=== PATIENT | male | born 1940 | race Caucasian/White ===

== ENCOUNTER 2020-08-08 09:44 | Day surgery (SDC) | payer MEDICARE ==
[~2020-08-08] VITALS: Ht 170.2 cm; Wt 59.2 kg
[~2020-08-08 09:44] MED LIST: ASPI81EC PO; CARV6.25 PO; GLIM2 PO; HYDACE5 PO; LISI5 PO; METF500 PO; OMEG1CAP30 PO; ROSU10TA PO; WARF5 PO
--- NOTE | 2020-08-08 10:59 | NUR ---
08/08/20 1059 Loretta Nath 1 TRY RIGHT HAND VALVE 2 TRY RIGHT WRIST MOVED
== END 2020-08-08 12:22 | disposition home or self-care (01) ==
LOC: ORSCSDS 09:44
PROVIDERS: Internal Medicine Gastroenterology
PROC: 0DBL8ZX Excision of Transverse Colon, Via Natural or Artificial Opening Endoscopic, Diagnostic (ICD-10-PCS; principal; 2020-08-08 11:45)
PROC: 0DBK8ZX Excision of Ascending Colon, Via Natural or Artificial Opening Endoscopic, Diagnostic (ICD-10-PCS; principal; 2020-08-08 11:45)
DX: Z12.11 Encounter for screening for malignant neoplasm of colon (principal); D12.2 Benign neoplasm of ascending colon; D12.3 Benign neoplasm of transverse colon; K57.30 Diverticulosis of large intestine without perforation or abscess without bleeding; K64.1 Second degree hemorrhoids; E11.9 Type 2 diabetes mellitus without complications; I10 Essential (primary) hypertension; Z79.84 Long term (current) use of oral hypoglycemic drugs; Z79.899 Other long term (current) drug therapy; Z79.01 Long term (current) use of anticoagulants
CPT/HCPCS: 82947; 88305; J2704; J7120

== ENCOUNTER 2024-06-17 09:47 | Inpatient (IN) | payer MEDICARE ==
[~2024-06-17] VITALS: Ht 167.6 cm; Wt 56.9 kg
[~2024-06-17 09:47] MED LIST changes: +DOCUZEN 8.6-501 EACH PO; +ELIQUIS2.5 MG PO; +FARXIGA10 MG PO; +METO25ER PO; +Percocet 5-3251 EACH PO
[2024-06-17 13:48] LABS: BASOPHILS ABSOLUTE AUTO 0.04 K/mm3 (0.00-0.23); BASOPHILS PERCENT AUTO 1 % (0-2); EOSINOPHILS ABSOLUTE AUTO 0.09 K/mm3 (0.00-0.68); EOSINOPHILS PERCENT AUTO 1 % (0-6); Hematocrit 36.7 % (37.0-53.0); Hemoglobin 12.3 g/dL (13.5-17.5); IMMATURE GRAN ABSOLUTE AUTO 0.04 K/mm3 (0.00-0.10); IMMATURE GRAN PERCENT AUTO 1 % (0-1); LYMPHOCYTES ABSOLUTE AUTO 1.91 K/mm3 (0.84-5.20); LYMPHOCYTES PERCENT AUTO 23 % (21-46); MONOCYTES ABSOLUTE AUTO 0.56 K/mm3 (0.16-1.47); MONOCYTES PERCENT AUTO 7 % (4-13); Mean Corpuscular HGB 29.6 pg (26.0-34.0); Mean Corpuscular HGB Conc 33.5 g/dL (31.5-36.5); Mean Corpuscular Volume 88 fL (80-100); Mean Platelet Volume 9.6 fL (9.1-12.4); NEUTROPHILS ABSOLUTE AUTO 5.83 K/mm3 (1.96-9.15); NEUTROPHILS PERCENT AUTO 69 % (41-73); Platelet Count 197 K/mm3 (150-400); RDW Coefficient Variation 13.2 % (11.7-14.2); RDW Standard Deviation 43.3 fL (35.1-46.3); Red Blood Cell Count 4.16 M/mm3 (4.30-5.90); White Blood Cell Count 8.47 K/mm3 (4.00-11.30)
[2024-06-17 14:05] LABS: Calcium, Blood 8.8 mg/dL (8.5-10.1); Creatinine, Blood 1.59 mg/dL (0.60-1.20); Potassium, Blood 3.9 mmol/L (3.5-5.5)
[2024-06-17] MEDS ORDERED: FLU VACC TS2024-25(6MOS UP)/PF 45 MCG/0.5 ML SYRINGE IM SCH (14:45)
[2024-06-17] MEDS ORDERED: Ondansetron HCl 2 MG / ML 2ML Vial IV PRN (14:45)
[2024-06-17] MEDS ORDERED: NS 1,000 ML IV SCH (14:45)
[2024-06-17 14:56] LABS: International Normalized Ratio 1.04; Prothrombin Time Results 11.1 Sec (9.7-11.5)
[2024-06-17 16:08] VITALS: BP 122/88
[2024-06-17] MEDS ORDERED: Crestor40 MG PO (16:10)
[2024-06-17] MEDS ORDERED: INSULANI SC (16:12)
[2024-06-17] MEDS ORDERED: INSULIN AS100 UNIT/8 SC (16:13)
[2024-06-17] MEDS ORDERED: XULTOPHY SC (16:14)
[2024-06-17] MEDS ORDERED: Heparin Sodium,Porcine/0.5 NS 500 ML IV SCH (16:20)
--- NOTE | 2024-06-17 16:45 | NUR ---
ARRIVAL TO UNIT AFTER RECEIVING REPORT FROM ED RN, PATIENT TRANSFERRED TO UNIT AT APPROX 1600. PATIENT ALERT AND ORIENTED X4. COMMUNICATES NEEDS EFFECTIVELY. FOLLOWS COMMANDS APPROPRIATELY. TRANSFERRED TO BED VIA SLIDER SHEET. L HIP FX - PPP, IS NOT EXTERNALLY ROTATED. PAIN TOLERABLE AT THIS TIME. VSS. ON ROOM AIR, SATs >90%. TELEMETRY SHOWING SINUS WITH PVCs 70s PER RAJIV MUSIC INTERN. DENIES CHEST PAIN, PRESSURE. HEPARIN GTT STARTED PER EMAR. URINAL WITHIN REACH. SCDs PLACED. SKIN INTACT - NO WOUNDS NOTED. CALL LIGHT IN REACH.
[2024-06-17] MEDS ORDERED: FentaNYL Citrate 50 MCG/ML 2 ML Injection IV PRN (17:05)
[2024-06-17] MEDS ORDERED: Insulin Human Lispro 100 Units/ML 3ML Syringe SC SCH (18:00)
--- NOTE | 2024-06-17 18:27 | NUR ---
SHIFT SUMMARY NO ACUTE CHANGES SINCE ARRIVAL TO UNIT. PATIENT REMAINS ALERT AND ORIENTED X4. COMMUNICATING NEEDS EFFECTIVELY. MEDICATED PER EMAR 4/10 L HIP PAIN WITH RELIEF. IVF INFUSING PER EMAR. HEPARIN GTT INFUSING PER EMAR. CALL LIGHT IN REACH. WILL CONTINUE TO MONITOR AND REPORT TO ONCOMING RN.
[2024-06-17 19:29] VITALS: BP 130/70
[2024-06-17] MEDS ORDERED: Dose Adjust by Pharmacy XX STA (23:51)
[2024-06-18] VITALS (15 sets, daily range): BP systolic 101–133; BP diastolic 61–86
[2024-06-18] MEDS ORDERED: Vancomycin HCL 1,000 MG in NS 250 ML IV SCH (00:01)
[2024-06-18] MEDS ORDERED: CeFAZolin Sodium 2,000 MG in NS 100 ML IV SCH ×2 (00:01→22:00)
[2024-06-18] MEDS ORDERED: Tranexamic Acid 1,000 MG in NS 100 ML IV SCH ×2 (00:01→13:50)
--- NOTE | 2024-06-18 04:13 | NUR ---
SHIFT SUMMARY NO ACUTE CHANGES OVERNIGHT. NPO AT MIDNIGHT; PREOP STATUS. PAIN MANAGED USING NPIS AND PER EMAR. A&OX4. PLEASANT & COOPERATIVE WITH CARES. ABLE TO VOICE NEEDS. TELEMETRY OVERNIGHT, ABNORMAL FINDINGS NOTED IN NURSING NOTE. HEPARIN GTT OVERNIGHT PER EMAR, TITRATION MANAGED BY PHARMACY. PT VOICED UNDERSTANDING OF PLAN OF CARES, DENIES QUESTIONS/CONCERNS AT THIS TIME.
--- NOTE | 2024-06-18 04:18 | NUR ---
TELEMETRY NOTES, NOCSHIFT 1944 PAPO FROM TELE INFORMED THIS RN OF 12 SECONDS OF BIGEMINY. PT ASYMPTOMATIC. RETURNED TO SR AT 72 BPM WITH BUNDLE BRANCH. PHYSICIAN INTERNIST MADE AWARE. 413 PAPO FROM TELE INFORMED THIS RN OF 15 BEATS OF SVT, HR OF 153BPM. RETURNED TO SR AT 60BPM WITH BUNDLE BRANCH. PT ASSESSED BY THIS RN; ASLEEP, RESTING QUIETLY WITH EYES CLOSED, BREATHING EQUAL & UNLABORED. PHYSICIAN INTERNIST MADE AWARE.
[2024-06-18 06:52] LABS: BASOPHILS ABSOLUTE AUTO 0.07 K/mm3 (0.00-0.23); BASOPHILS PERCENT AUTO 1 % (0-2); EOSINOPHILS ABSOLUTE AUTO 0.41 K/mm3 (0.00-0.68); EOSINOPHILS PERCENT AUTO 5 % (0-6); Hematocrit 33.8 % (37.0-53.0); IMMATURE GRAN ABSOLUTE AUTO 0.02 K/mm3 (0.00-0.10); IMMATURE GRAN PERCENT AUTO 0 % (0-1); LYMPHOCYTES ABSOLUTE AUTO 2.36 K/mm3 (0.84-5.20); LYMPHOCYTES PERCENT AUTO 29 % (21-46); MONOCYTES ABSOLUTE AUTO 0.64 K/mm3 (0.16-1.47); MONOCYTES PERCENT AUTO 8 % (4-13); Mean Corpuscular HGB 29.1 pg (26.0-34.0); Mean Corpuscular HGB Conc 32.5 g/dL (31.5-36.5); Mean Corpuscular Volume 89 fL (80-100); Mean Platelet Volume 9.4 fL (9.1-12.4); NEUTROPHILS ABSOLUTE AUTO 4.68 K/mm3 (1.96-9.15); NEUTROPHILS PERCENT AUTO 57 % (41-73); Platelet Count 176 K/mm3 (150-400); RDW Coefficient Variation 13.3 % (11.7-14.2); RDW Standard Deviation 44.1 fL (35.1-46.3); Red Blood Cell Count 3.78 M/mm3 (4.30-5.90); White Blood Cell Count 8.18 K/mm3 (4.00-11.30)
[2024-06-18 07:05] LABS: Bun/Creatinine Ratio 18.2 (12.0-20.0); Calcium, Blood 8.2 mg/dL (8.5-10.1); Creatinine, Blood 1.48 mg/dL (0.60-1.20); Potassium, Blood 4.1 mmol/L (3.5-5.5)
[2024-06-18] MEDS ORDERED: FentaNYL Citrate 50 MCG/ML 2 ML Injection IV PRN (09:25)
--- NOTE | 2024-06-18 09:57 | NUR ---
MORNING NOTE ASSUMED CARE AT 0715. PATIENT ALERT AND ORIENTED X4. IS A BIT KOI - COMMUNICATES NEEDS EFFECTIVELY. VSS. L HIP FX - PPP, MILD SWELLING. MD BAILEY ROUNDING THIS MORNING - DISCUSSED WITH PATIENT AND HIS DAUGHTER NEED FOR OUTPATIENT FABRIC DESIGNER FOLLOW UP DUE TO TELEMETRY EVENTS LAST NIGHT AND CARDIAC HX - 14 BEAT RUN OF VTACH. PER RAJIV TURBOGENERATOR OPERATOR - TELEMETRY SHOWING SINUS W/ PVCs AND WANDERING ATRIAL. BP STABLE. PATIENT ASYMPTOMATIC. CONCERN FOR CARDIAC EVENT LEADING TO FALL. CODE STATUS DISCUSSED - WISH TO REMAIN FULL CODE POST PROCEDURE AT THIS TIME. LLE PAIN NOT MANAGED WITH CURRENT FENTANYL ORDER - MD BAILEY CHANGED ORDER TO 25MCG - 50MCG Q4H. ADDITIONAL DOSE ADMINISTERED PER EMAR WITH REPORTED RELIEF. HEPARIN GTT STOPPED PER EMAR PER MD MONTOYA. USING URINAL AT BEDSIDE. CALL LIGHT IN REACH. DAUGHTER AT BEDSIDE. AWAITING SURGICAL REPAIR OF L HIP. NPO SINCE MIDNIGHT.
[2024-06-18 12:06] LABS: BASOPHILS ABSOLUTE AUTO 0.05 K/mm3 (0.00-0.23); BASOPHILS PERCENT AUTO 1 % (0-2); EOSINOPHILS ABSOLUTE AUTO 0.27 K/mm3 (0.00-0.68); EOSINOPHILS PERCENT AUTO 4 % (0-6); Hematocrit 35.6 % (37.0-53.0); Hemoglobin 11.8 g/dL (13.5-17.5); IMMATURE GRAN ABSOLUTE AUTO 0.03 K/mm3 (0.00-0.10); IMMATURE GRAN PERCENT AUTO 0 % (0-1); LYMPHOCYTES ABSOLUTE AUTO 1.51 K/mm3 (0.84-5.20); LYMPHOCYTES PERCENT AUTO 19 % (21-46); MONOCYTES ABSOLUTE AUTO 0.45 K/mm3 (0.16-1.47); MONOCYTES PERCENT AUTO 6 % (4-13); Mean Corpuscular HGB 29.5 pg (26.0-34.0); Mean Corpuscular HGB Conc 33.1 g/dL (31.5-36.5); Mean Corpuscular Volume 89 fL (80-100); NEUTROPHILS ABSOLUTE AUTO 5.51 K/mm3 (1.96-9.15); NEUTROPHILS PERCENT AUTO 70 % (41-73); Platelet Count 212 K/mm3 (150-400); RDW Coefficient Variation 13.2 % (11.7-14.2); RDW Standard Deviation 43.4 fL (35.1-46.3); White Blood Cell Count 7.82 K/mm3 (4.00-11.30)
--- NOTE | 2024-06-18 13:39 | NUR ---
PATIENT TRANSFERRED OFF UNIT FOR PROCEDURE
[2024-06-18] MEDS ORDERED: FentaNYL Citrate 50 MCG/ML 2 ML Injection ONE (13:40)
[2024-06-18] MEDS ORDERED: propofoL 0 ML IV ONE (13:40)
[2024-06-18] MEDS ORDERED: CeFAZolin Sodium 2,000 MG VIAL ONE (13:44)
[2024-06-18] MEDS ORDERED: Lactated Ringer's 1,000 ML IV ONE (13:51)
[2024-06-18] MEDS ORDERED: Tranexamic Acid 100 ML IV SCH (14:00)
[2024-06-18] MEDS ORDERED: Etomidate 2MG / ML 10ML Vial ONE (14:28)
[2024-06-18] MEDS ORDERED: Midazolam HCl 1MG / ML 2ML Vial ONE (14:29)
[2024-06-18] MEDS ORDERED: ePHEDrine Sulfate 50 MG/ML 1ML Injection ONE (14:39)
[2024-06-18] MEDS ORDERED: Lidocaine HCl 1% 30 ML SDV ONE (14:50)
[2024-06-18] MEDS ORDERED: Dexamethasone Sod Phos 10 MG/ML 1ML VIAL ONE (15:32)
[2024-06-18] MEDS ORDERED: Ondansetron HCl 2 MG / ML 2ML Vial ONE (15:32)
[2024-06-18] MEDS ORDERED: Phenylephrine HCl 100 MCG/ML-NS 10MLSYR (1MG/10ML) ONE (15:32)
[2024-06-18] MEDS ORDERED: Insulin Human Lispro 100 Units/ML 3ML Syringe SC SCH (16:30)
--- NOTE | 2024-06-18 17:58 | NUR ---
SHIFT SUMMARY PATIENT RETURNED TO UNIT FROM PACU AT APPROX 1600. PATIENT ALERT AND ORIENTED X4. COMMUNICATING NEEDS EFFECTIVELY. S/P L HIP PINNING - PPP, CAP REFILL <2 SECONDS. DENIES PAIN. AQUACEL DRESSING C/D/I. VSS. CURRENTLY ON 2L VIA NC POST PROCEDURE - SATs SUSTAINING 87-88% ON ROOM AIR. TELEMETRY SHOWING SINUS PER RAJIV FISHER QUAHOG. HEPARIN GTT RESTARTED PER EMAR AND MD ORDER. PHARMACY NOTIFIED. TOLERATING PO INTAKE - DENIES N/V. CALL LIGHT IN REACH. FAMILY AT BEDSIDE. WILL CONTINUE TO MONITOR AND REPORT TO ONCOMING RN.
[2024-06-18 18:30] LABS: MYOGLOBIN SERUM 132 ng/mL (<=72)
[2024-06-18] MEDS ORDERED: Lactobacil 2-S.Thermo-Bifido 1 1 Cap PO SCH (21:00)
[2024-06-18] MEDS ORDERED: Docusate Sodium 100 MG Cap PO SCH (21:00)
[2024-06-19] MEDS ORDERED: Heparin Sodium 5000 Units/ML 1ML MDV IV ONE (00:05)
[2024-06-19] MEDS ORDERED: Dose Adjust by Pharmacy XX STA (00:05)
[2024-06-19 04:09] VITALS: BP 125/84
--- NOTE | 2024-06-19 04:30 | NUR ---
SHIFT SUMMARY GERTRUDIS WAS ALERT AND FULLY ORIENTED ON ASSESMENT. PT ABLE TO PRODUCE POST OP VOID, PAIN WELL MANAGED AT THIS TIME. DRESSING C/D/I. CALL FROM TELE TO ALERT THAT PT QTC WAS PROLONGED TO 0.52, RESIDENT NOTIFIED, MAG/PHOS LABS ORDERED. PT WAS ASYMPTOMATIC. NO OTHER EVENTS OR NOTED CHANGES TO PT CONDITION.
[2024-06-19 06:50] LABS: BASOPHILS PERCENT AUTO 0 % (0-2); EOSINOPHILS PERCENT AUTO 0 % (0-6); Hematocrit 35.6 % (37.0-53.0); Hemoglobin 11.6 g/dL (13.5-17.5); IMMATURE GRAN ABSOLUTE AUTO 0.02 K/mm3 (0.00-0.10); IMMATURE GRAN PERCENT AUTO 0 % (0-1); LYMPHOCYTES PERCENT AUTO 15 % (21-46); MONOCYTES ABSOLUTE AUTO 0.07 K/mm3 (0.16-1.47); MONOCYTES PERCENT AUTO 1 % (4-13); Mean Corpuscular HGB 29.2 pg (26.0-34.0); Mean Corpuscular HGB Conc 32.6 g/dL (31.5-36.5); Mean Corpuscular Volume 90 fL (80-100); Mean Platelet Volume 9.6 fL (9.1-12.4); NEUTROPHILS ABSOLUTE AUTO 4.42 K/mm3 (1.96-9.15); NEUTROPHILS PERCENT AUTO 83 % (41-73); Platelet Count 205 K/mm3 (150-400); RDW Standard Deviation 42.8 fL (35.1-46.3); Red Blood Cell Count 3.97 M/mm3 (4.30-5.90); White Blood Cell Count 5.31 K/mm3 (4.00-11.30)
[2024-06-19 07:17] LABS: Bun/Creatinine Ratio 24.3 (12.0-20.0); Calcium, Blood 8.4 mg/dL (8.5-10.1); Creatinine, Blood 1.52 mg/dL (0.60-1.20); Magnesium, Blood 2.4 mg/dL (1.6-2.4); Phosphorus, Blood 4.3 mg/dL (2.5-4.9); Potassium, Blood 4.2 mmol/L (3.5-5.5)
[2024-06-19] MEDS ORDERED: Insulin Glargine-Yfgn 100 Unit/mL 3 ML SYR SC SCH (08:00)
[2024-06-19 08:21] VITALS: BP 120/72
[2024-06-19 08:22] VITALS: BP 120/72
[2024-06-19] MEDS ORDERED: Metoprolol Succinate 25 MG TABCR PO SCH (09:00)
[2024-06-19] MEDS ORDERED: Protein Supplement 30 ML UD PO SCH (09:00)
[2024-06-19] MEDS ORDERED: Rosuvastatin Calcium 10 MG Tab PO SCH (09:00)
[2024-06-19] MEDS ORDERED: Apixaban 5 MG Tab PO SCH (09:00)
[2024-06-19] MEDS ORDERED: Empagliflozin 25 MG TAB PO SCH (09:00)
[2024-06-19 14:18] VITALS: BP 118/70
[2024-06-19] MEDS ORDERED: Insulin Human Lispro 100 Units/ML 3ML Syringe SC SCH (16:30)
--- NOTE | 2024-06-19 18:30 | NUR ---
SHIFT SUMMARY POD 1 L HIP PINNING. NO ACUTE CHANGES TODAY. VSS - SINUS @ 73 c PVCs. TOELRATING ORALS. PT BLOOD GLUCOSE REMAINS ELEVATED DESPITE MEDICATION PER EMAR. PT REPORTS PAIN TOLERABLE c NON-PHARM INTERVENTIONS. WORKED c PHYSCIAL THERAPY TODAY, AMBULATES USING FWW c GB & 1 PERSON ASSIST. VOIDING. AQUACEL C/D/I. ANTICIPATED D/C TO SNF [place] ON SATURDAY. CALL LIGHT IN REACH, RESTING IN CHAIR, WILL REPORT TO TYRONE ROBLES.
[2024-06-19 19:38] VITALS: BP 94/60
[2024-06-20] VITALS (8 sets, daily range): BP systolic 99–139; BP diastolic 45–84
--- NOTE | 2024-06-20 04:54 | NUR ---
SHIFT SUMMARY GERTRUDIS WAS ALERT AND FULLY ORIENTED ON ASSESMENT. AQUACEL C/D/I. PT STATES THAT HE HAS NO PAIN, DISTAL CIRCULATION TO EXTREMETIES INTACT. PT IS VERY HAPPY WITH HOW HIS LEG IS DOING AT THIS TIME. NO ACUTE EVENTS TONIGHT, NO NEW ALERTS FROM TELEMETRY. PT RESTING IN BED WITH CALL LIGHT IN REACH.
[2024-06-20 06:58] LABS: BASOPHILS ABSOLUTE AUTO 0.01 K/mm3 (0.00-0.23); BASOPHILS PERCENT AUTO 0 % (0-2); EOSINOPHILS PERCENT AUTO 0 % (0-6); Hematocrit 32.7 % (37.0-53.0); IMMATURE GRAN ABSOLUTE AUTO 0.09 K/mm3 (0.00-0.10); IMMATURE GRAN PERCENT AUTO 1 % (0-1); LYMPHOCYTES ABSOLUTE AUTO 1.41 K/mm3 (0.84-5.20); LYMPHOCYTES PERCENT AUTO 9 % (21-46); MONOCYTES ABSOLUTE AUTO 0.65 K/mm3 (0.16-1.47); MONOCYTES PERCENT AUTO 4 % (4-13); Mean Corpuscular HGB 29.4 pg (26.0-34.0); Mean Corpuscular HGB Conc 33.6 g/dL (31.5-36.5); Mean Corpuscular Volume 87 fL (80-100); Mean Platelet Volume 9.4 fL (9.1-12.4); NEUTROPHILS ABSOLUTE AUTO 13.19 K/mm3 (1.96-9.15); NEUTROPHILS PERCENT AUTO 86 % (41-73); Platelet Count 228 K/mm3 (150-400); RDW Coefficient Variation 13.3 % (11.7-14.2); RDW Standard Deviation 42.7 fL (35.1-46.3); Red Blood Cell Count 3.74 M/mm3 (4.30-5.90); White Blood Cell Count 15.35 K/mm3 (4.00-11.30)
[2024-06-20 07:13] LABS: Bun/Creatinine Ratio 35.8 (12.0-20.0); Calcium, Blood 8.6 mg/dL (8.5-10.1); Creatinine, Blood 1.59 mg/dL (0.60-1.20)
[2024-06-20] MEDS ORDERED: Insulin Human Lispro 100 Units/ML 3ML Syringe SC SCH ×3 (07:30→12:30)
[2024-06-20] MEDS ORDERED: Spironolactone 25 MG Tab PO SCH (09:00)
[2024-06-20] MEDS ORDERED: Spironolactone 12.5 MG TAB PO SCH (09:00)
--- NOTE | 2024-06-20 19:42 | NUR ---
SHIFT SUMMARY PT IS POD2 FOR R TIB/FIB ORIF AND FASCIOTOMY. DRESSING CHANGED TODAY, SEE PREVIOUS NOTE. R LEG ELEVATED ON 4 PILLOWS, CAP REFILL <2 SECS, PT ABLE TO WIGGLE TOES. BACILIO WRAP BANDAGE LOOSELY WRAPPED AROUND LEG. MINIMAL EDEMA PRESENT IN BLE. PT HAD ONE DOSE OF IV DILAUDID THIS AM, TOLERATED BREAKFAST BUT COULD NOT TOLERATE LUNCH AND BEGAN VOMITING. PT VOMITED INTERMITTENTLY BETWEEN NAPS TODAY AND REFUSED NAUSEA/PAIN MEDS, DESPITE EDUCATION, STATING "ALL OF THOSE MEDS ARE MAKING ME SICK". PT ALSO REPORTED SOME ABD PAIN IN ADDITION TO R LEG PAIN. ABD MILDLY DISTENDED, BOWEL TONES PRESENT IN ALL FOUR QUADRANTS. VSS. INFORMED DR. CONRAD OF PT'S CHANGE IN CONDITION, DR. CONRAD PUT IN ORDERS FOR PAIN MEDS AND FLUIDS. PT AGREEABLE TO IV DILAUDID AND ZOFRAN TONIGHT. MEDICATED PT FOR PAIN AND NAUSEA AND PT PROCEEDED TO REST PEACEFULLY. 2LNC APPLIED WHILE PT SLEPT TO KEEP O2 SATS <92%, CONT BIOX ON. PT AROUSABLE TO VOICE. PT UNMOTIVATED TO AMBULATE TODAY DUE TO FEELING UNWELL, USING URINAL IN BED AND REPOSITIONING HIMSELF. USING CALL LIGHT APPROPRIATELY.
--- NOTE | 2024-06-20 19:55 | NUR ---
SHIFT SUMMARY PT IS POD2 FOR L HIP PINNING. AMBULATING 1 ASST W/ FWW AND GB. VOIDING IND IN URINAL. DRESSING ON L HIP D/C/I, SOME SHADOWING PRESENT WITHIN BORDERS. PT DENIES N/T TO BLE. VSS. PT DENIES PAIN AND NAUSEA. CURRENTLY RESTING IN RECLINER. CALLING APPROPRIATELY.
[2024-06-20] MEDS ORDERED: Metoclopramide HCl 5MG / ML 2ML Vial IV PRN (23:00)
[2024-06-21 04:44] VITALS: BP 110/70
[2024-06-21 05:43] LABS: BASOPHILS ABSOLUTE AUTO 0.02 K/mm3 (0.00-0.23); BASOPHILS PERCENT AUTO 0 % (0-2); EOSINOPHILS PERCENT AUTO 0 % (0-6); Hematocrit 36.7 % (37.0-53.0); Hemoglobin 12.1 g/dL (13.5-17.5); IMMATURE GRAN ABSOLUTE AUTO 0.11 K/mm3 (0.00-0.10); IMMATURE GRAN PERCENT AUTO 1 % (0-1); LYMPHOCYTES ABSOLUTE AUTO 1.35 K/mm3 (0.84-5.20); LYMPHOCYTES PERCENT AUTO 8 % (21-46); MONOCYTES ABSOLUTE AUTO 0.74 K/mm3 (0.16-1.47); MONOCYTES PERCENT AUTO 4 % (4-13); Mean Corpuscular HGB 29.3 pg (26.0-34.0); Mean Corpuscular Volume 89 fL (80-100); Mean Platelet Volume 9.4 fL (9.1-12.4); NEUTROPHILS ABSOLUTE AUTO 15.39 K/mm3 (1.96-9.15); NEUTROPHILS PERCENT AUTO 87 % (41-73); Platelet Count 260 K/mm3 (150-400); RDW Coefficient Variation 13.4 % (11.7-14.2); RDW Standard Deviation 43.6 fL (35.1-46.3); Red Blood Cell Count 4.13 M/mm3 (4.30-5.90); White Blood Cell Count 17.61 K/mm3 (4.00-11.30)
[2024-06-21 06:08] LABS: Bun/Creatinine Ratio 39.1 (12.0-20.0); Calcium, Blood 8.9 mg/dL (8.5-10.1); Creatinine, Blood 1.69 mg/dL (0.60-1.20); Potassium, Blood 4.7 mmol/L (3.5-5.5)
--- NOTE | 2024-06-21 06:50 | NUR ---
SHIFT SUMMARY AT START OF SHIFT, PT SITTING IN HIS RECLINER RELAXING. APPROX 2129, PT BEGAN VOMITING. 500ML TOTAL. PT STATED HE WAS STILL FEELING NAUSEOUS. THIS RN MEDICATED HIM WITH 4MG IV ZOFRAN. APPROX 2154, PT VOMITED 225ML. TELE CALLED WITH A RUN OF SVT WITH STABLE Q-T. VITALS TAKEN, SHOWING TEMP 97, BP 122/74 WITH MAP OF 88, HR 98BPM, SPO2 93, RESP. 18. PT STATED HE IS PASSING GAS AND FEELS LIKE HE NEEDS TO HAVE A BM. DOC CALLED FOR STAT REGLAN FOR NAUSEA, AND IV METOPROLOL, AM DOSE WAS SKIPPED FOR SBP 105. DOCTOR SINTIA CALLED, ORDERED 10MG IV REGLAN Q6 PRN FOR NAUSEA/VOMITING. SAID TO HOLD THE METOPROLOL FOR NOW, LONG PT IS STABLE. IF HR STILL ELEVATED WITH MORNING VITALS, ADMINISTER PO METOPROLOL EARLY. 0501, PT NEEDING BRIEF AND GOWN CHANGED. PT SITTING BACK IN RECLINER. PT CONTINUES TO DENY PAIN/DISCOMFORT. 0630, PT MEDICATED FOR NAUSEA/VOMITING. SITTING IN RECLINER RESTING.
[2024-06-21 07:03] VITALS: BP 116/68
--- NOTE | 2024-06-21 09:00 | NUR ---
NOC RN REPORTED PT HAD MULTIPLE EPISODES OF EMESIS AND A SOFT INC BOWEL MOVEMENT, PT DID NOT USE CALL LIGHT AND WAS REPORTEDLY FOUND ATTEMPTING TO CLEAN HIMSELF. PT IS A/O X4 THIS MORNING BUT DROWSY, WAS ABLE TO TAKE MORNING PILLS INCLUDING METOPROLOL AND IS CURRENTLY SLEEPING. WBC COUNT INCREASING. CALL PLACED TO DR. MUNROE TO NOTIFY OF CHANGE IN PT STATUS AND INCREASING WBC COUNT, NO ANSWER, LEFT VOICEMAIL.
--- NOTE | 2024-06-21 09:30 | NUR ---
SPOKE W/ DR. GILBERT ABT PT'S NAUSEA, EPISODES OF EMESIS LAST NIGHT, INCREASING WBC, AND GENERAL DROWSINESS/MILD CONFUSION THIS AM. NO ORDERS RECIEVED AT THIS TIME, DR. GILBERT IN TO ASSESS PT AT BEDSIDE. SPOKE W/ DAUGHTER TYSON WHO HAD SPOKEN W/ PT ON THE PHONE AND WAS CONCERNED THAT PT WAS REPEATING QUESTIONS INTERMITTENTLY AND "SOUNDED LIKE HE DID NOT FEEL GOOD". VERIFIED OK TO SPEAK TO DAUGHTER AND THEN ASSURED HER THAT DR. GILBERT IS AWARE OF PT'S CONDITION AND HAS ASSESSED HIM THIS AM. PT CURRENTLY STATES HE FEELS "MUCH BETTER" AND IS CHEERFUL AND THANKFUL THIS AM. DENIES PAIN, SOB, AND NAUSEA. CALL LIGHT IN REACH.
[2024-06-21 14:37] VITALS: BP 105/68
--- NOTE | 2024-06-21 16:42 | NUR ---
SHIFT SUMMARY PT IS POD3 FOR L HIP PINNING. DRESSING REMAINS C/D/I W/ SOME LIGHT SHADOWING WITHIN BORDERS. CAP REFILL IN L TOES 2 SECS. PT STATES HE "FEELS MUCH BETTER" TODAY, DENIES PAIN/NAUSEA/SOB. VSS. PT HAS TOLERATED REG DIET TODAY, HAS VOIDED AND HAD A SOFT BUT FORMED CONTINENT BM, PT DID CALL FOR ASSISTANCE TO AMBULATE. SPOKE W/ DR. GILBERT ABOUT MISSED DOSE OF METOPROLOL DUE TO HYPOTENSION 06/20, NO FURTHER ORDERS RECIEVED, PT ABLE TO KEEP AM PILLS DOWN TODAY INCLUDING METOPROLOL. NO ACUTE TELE EVENTS THIS SHIFT, CURRENTLY SINUS RHYTHM W/ RATE OF 60-85, DENIES CHEST PAIN/PRESSURE. AMBULATING 1 ASST W/ FWW AND GB. CHAIR ALARM ON FOR SAFETY PT USES CALL LIGHT INTERMITTENTLY AND HAS BEEN DROWSY/MILDLY CONFUSED AT TIMES, MD AWARE. PT IN GOOD SPIRITS TODAY, CURRENTLY WATCHING TV AND RESTING IN RECLINER W/ CALL LIGHT IN REACH.
[2024-06-21 20:01] VITALS: BP 109/73
--- NOTE | 2024-06-22 04:25 | NUR ---
SHIFT SUMMARY GERTRUDIS WAS ALERT AND FULLY ORIENTED ON ASSESMENT. PER DAYSHIFT REPORT PT WAS VOMITING AND HAVING DIARRHEA PREVIOUS NIGHT. THESE SYMPTOMS HAVE RESOLVED, PT STATES THAT HE IS FEELING MUCH BETTER. DRESSING TO L HIP C/D/I, PT NOT REQUIRING PAIN MANAGEMENT AT THIS TIME. PT DENIES ANY NEW OR WORSENING SYMPTOMS/CONDITIONS. PT SLEEPING WITH CALL LIGHT IN REACH.
[2024-06-22 04:40] VITALS: BP 123/75
[2024-06-22 05:23] LABS: BASOPHILS ABSOLUTE AUTO 0.05 K/mm3 (0.00-0.23); BASOPHILS PERCENT AUTO 1 % (0-2); EOSINOPHILS ABSOLUTE AUTO 0.43 K/mm3 (0.00-0.68); EOSINOPHILS PERCENT AUTO 4 % (0-6); Hematocrit 33.6 % (37.0-53.0); Hemoglobin 11.2 g/dL (13.5-17.5); IMMATURE GRAN ABSOLUTE AUTO 0.12 K/mm3 (0.00-0.10); IMMATURE GRAN PERCENT AUTO 1 % (0-1); LYMPHOCYTES ABSOLUTE AUTO 3.15 K/mm3 (0.84-5.20); LYMPHOCYTES PERCENT AUTO 29 % (21-46); MONOCYTES ABSOLUTE AUTO 0.66 K/mm3 (0.16-1.47); MONOCYTES PERCENT AUTO 6 % (4-13); Mean Corpuscular HGB 29.3 pg (26.0-34.0); Mean Corpuscular HGB Conc 33.3 g/dL (31.5-36.5); Mean Corpuscular Volume 88 fL (80-100); Mean Platelet Volume 9.6 fL (9.1-12.4); NEUTROPHILS ABSOLUTE AUTO 6.39 K/mm3 (1.96-9.15); NEUTROPHILS PERCENT AUTO 59 % (41-73); Platelet Count 235 K/mm3 (150-400); RDW Coefficient Variation 13.6 % (11.7-14.2); RDW Standard Deviation 43.8 fL (35.1-46.3); Red Blood Cell Count 3.82 M/mm3 (4.30-5.90)
[2024-06-22 05:56] LABS: Bun/Creatinine Ratio 42.9 (12.0-20.0); Calcium, Blood 8.5 mg/dL (8.5-10.1); Creatinine, Blood 1.47 mg/dL (0.60-1.20); Potassium, Blood 4.6 mmol/L (3.5-5.5)
[2024-06-22 07:36] VITALS: BP 124/65; BP 97/72
--- NOTE | 2024-06-22 07:50 | NUR ---
REPORT FROM MARGARET MEJIA. ASSUMING CARE.
[2024-06-22 14:27] VITALS: BP 106/60
--- NOTE | 2024-06-22 17:34 | NUR ---
SHIFT SUMMARY PT A/OX4. UP IN CHAIR FOR ALL SHIFT BESIDES WHEN WORKING WITH PHYSICAL THERAPY. PT DENIES ANY PAIN THROUGHOUT THE SHIFT. PT IN GOOD MOOD. USING URINAL IN CHAIR INDEPENDENTLY. AWAITING D/C TO SNF. PT HAS CALL LIGHT IN REACH
[2024-06-22 19:25] VITALS: BP 113/68
--- NOTE | 2024-06-23 04:36 | NUR ---
SHIFT SUMMARY POD 5 L HIP PINNING. NO ACUTE CHANGES OVERNIGHT. VSS - TELE IN USE. TOLERATING ORALS. AQUACEL DRESSING c MOD SANG DRAINAGE, OTHERWISE D/I. AMBULATING USING FWW. VOIDING. PT RESTING IN CHAIR T/O NIGHT, REPORTS PAIN TOLERABLE. ANTICIPATED D/C TO SNF. CALL LIGHT IN REACH, CHAIR ALARM IN USE, WILL REPORT TO DAY RN.
[2024-06-23 05:01] VITALS: BP 129/72
[2024-06-23 05:36] LABS: BASOPHILS ABSOLUTE AUTO 0.05 K/mm3 (0.00-0.23); BASOPHILS PERCENT AUTO 0 % (0-2); EOSINOPHILS PERCENT AUTO 6 % (0-6); Hematocrit 37.8 % (37.0-53.0); Hemoglobin 12.2 g/dL (13.5-17.5); IMMATURE GRAN ABSOLUTE AUTO 0.21 K/mm3 (0.00-0.10); IMMATURE GRAN PERCENT AUTO 2 % (0-1); LYMPHOCYTES ABSOLUTE AUTO 3.08 K/mm3 (0.84-5.20); LYMPHOCYTES PERCENT AUTO 24 % (21-46); MONOCYTES PERCENT AUTO 7 % (4-13); Mean Corpuscular HGB Conc 32.3 g/dL (31.5-36.5); Mean Corpuscular Volume 90 fL (80-100); Mean Platelet Volume 9.5 fL (9.1-12.4); NEUTROPHILS ABSOLUTE AUTO 7.68 K/mm3 (1.96-9.15); NEUTROPHILS PERCENT AUTO 61 % (41-73); Platelet Count 270 K/mm3 (150-400); RDW Coefficient Variation 13.5 % (11.7-14.2); RDW Standard Deviation 44.4 fL (35.1-46.3); Red Blood Cell Count 4.21 M/mm3 (4.30-5.90); White Blood Cell Count 12.62 K/mm3 (4.00-11.30)
[2024-06-23 05:44] LABS: Calcium, Blood 8.8 mg/dL (8.5-10.1); Creatinine, Blood 1.44 mg/dL (0.60-1.20); Potassium, Blood 4.7 mmol/L (3.5-5.5)
[2024-06-23 07:04] VITALS: BP 105/82
[2024-06-23 14:54] VITALS: BP 114/66
--- NOTE | 2024-06-23 18:21 | NUR ---
SHIFT SUMMARY PT IS POD#5. PT HAS DENIED PAIN T/O THE SHIFT. PLAN FOR DC TO SNF TOMORROW. PT IS A 1 ASSIST WHEN OOB. HE HAS BEEN PLEASANT AND IN GOOD SPIRITS T/O THE DAY. VSS. PT USES CALL LIGHT APPROPRIATELY.
[2024-06-23 20:07] VITALS: BP 108/75
[2024-06-24 04:51] VITALS: BP 108/69
--- NOTE | 2024-06-24 05:22 | NUR ---
SHIFT SUMMARY POD 6 L HIP PINNING. NO ACUTE CHANGES OVERNIGHT. VSS. TOLERATING ORALS. AQUACEL DRESSING C/D/I. AMBULATING USING FWW c GB & 1 PERSON ASSIST. VOIDING. PT RESTING IN CHAIR T/O NIGHT, REPORTS PAIN TOLERABLE. ANTICIPATED D/C TODAY. CALL LIGHT IN REACH, WILL REPORT TO DAY RN.
[2024-06-24 07:13] VITALS: BP 113/73
[2024-06-24 12:19] VITALS: BP 106/80
--- NOTE | 2024-06-24 12:55 | NUR ---
DISCHARGE NOTE PT IS A/O X4, AMBULATING 1 ASST W/ FWW AND GB, VOIDING, TOLERATING REG DIET. DENIES PAIN/NAUSEA. DRESSING C/D/I. REPORT GIVEN TO [facility] AT 1240. VSS. PT DC'D VIA W/C TO PRIVATE TRANSPORT (DAUGHTER MARC) IN STABLE CONDITION W/ BELONGINGS. TRANSFER PACKET SENT W/ PT AND DAUGHTER.
== END 2024-06-24 12:55 | DRG 481 ==
LOC: ER 09:47 → SURS 14:42
PROVIDERS: Orthopaedic Surgery; Student in an Organized Health Care Education/Training Program; ADMIT Internal Medicine
PROC: 0QS704Z Reposition Left Upper Femur with Internal Fixation Device, Open Approach (ICD-10-PCS; principal; 2024-06-18 14:00)
DX: S72.002A Fracture of unspecified part of neck of left femur, initial encounter for closed fracture (principal); I13.0 Hypertensive heart and chronic kidney disease with heart failure and stage 1 through stage 4 chronic kidney disease, or unspecified chronic kidney disease; I50.22 Chronic systolic (congestive) heart failure; I47.29 Other ventricular tachycardia; W18.30XA Fall on same level, unspecified, initial encounter; Z79.01 Long term (current) use of anticoagulants; Z79.899 Other long term (current) drug therapy; I25.10 Atherosclerotic heart disease of native coronary artery without angina pectoris; E78.5 Hyperlipidemia, unspecified; E11.22 Type 2 diabetes mellitus with diabetic chronic kidney disease; N18.32 Chronic kidney disease, stage 3b; Z96.641 Presence of right artificial hip joint; D72.829 Elevated white blood cell count, unspecified; Z86.73 Personal history of transient ischemic attack (TIA), and cerebral infarction without residual deficits; Z98.890 Other specified postprocedural states; M21.062 Valgus deformity, not elsewhere classified, left knee; Z95.1 Presence of aortocoronary bypass graft; I48.0 Paroxysmal atrial fibrillation; Z79.4 Long term (current) use of insulin; I44.7 Left bundle-branch block, unspecified; R94.31 Abnormal electrocardiogram [ECG] [EKG]; D63.1 Anemia in chronic kidney disease
CPT/HCPCS: 36415; 70450; 73502; 80048; 82550; 82947; 83735; 83874; 84100; 85025; 85520; 85610; 85730; 93005; 93010; 97110; 97110-CQ; 97116; 97116-CQ; 97162; 97530; 99285-25; A9270; C1713; C1769; J0690; J1100; J1644; J1815; J2250; J2371; J2405; J2704; J2765; J3010; J3370; J7030; J7050; J7120